=== PATIENT | male | born 1970 | race African-American/Black ===

== ENCOUNTER 2016-09-01 23:39 | Inpatient (IN) | payer OTHER ==
--- NOTE | ~2016-09-01 | HP ---
Unit #: [id number] #: [id number] Patient: REGINO GLOVER [id number] [place] [address] [id number] MR#: [id number] NAME: REGINO GLOVER ROOM: P206 Age: 46 Sex: M Admission Date: 09/01/2016 : 1970 Attending Physician: Win Shrestha M.D. Admitting Physician: Win Shrestha M.D. Primary Care Physician: Primary Care Physician No HISTORY AND PHYSICAL HISTORY OF PRESENT ILLNESS Regino is a 46 year old admitted to [address] [place] [address] because of his illicit drug use which includes IV methamphetamine. PAST MEDICAL HISTORY Long history of illicit substance abuse to include IV meth. PAST SURGICAL HISTORY Nothing reported. ALLERGIES No known drug allergies. SOCIAL HISTORY Smokes greater than one pack per day. Denies alcohol. Admits to a long history of illicit substance abuse to include IV methamphetamine. FAMILY HISTORY Medically noncontributory. REVIEW OF SYSTEMS CONSTITUTIONAL: No fever or chills. HEENT: Denies any sore throat, ear pain or runny nose. CARDIOVASCULAR: Denies chest pain, irregular heart rhythm or palpitations. CHEST: Denies shortness of breath or cough. No hemoptysis. GASTROINTESTINAL: Denies nausea, vomiting, diarrhea or chronic constipation. ENDOCRINE: Denies history of increased thirst or urination. No recent significant weight loss or gain. GENITOURINARY: Denies dysuria, frequency, or hematuria. SKIN: Denies any rashes. HEMATOLOGIC: Denies history of increased bleeding or bruising. MUSCULOSKELETAL: Denies any hot, swollen joints. No generalized muscle pain. NEUROLOGIC: Denies problems with vision or speech. No frequent, severe headaches. No numbness, tingling or weakness in any extremities. Denies loss of bladder or bowel control. CURRENT MEDICATIONS 1. Nicotine patch 14 mg daily 2. Zyprexa 10 mg b.i.d. 3. Trazodone 75 mg q.h.s. p.r.n. Unit #: [id number] #: [id number] Patient: REGINO GLOVER 4. Milk of Magnesia p.r.n. 5. Maalox p.r.n. 6. Tylenol p.r.n. PHYSICAL EXAMINATION GENERAL: Alert, well-nourished, in no apparent distress. VITAL SIGNS: Blood pressure 140/86, heart rate 100, respirations 16, temperature 98.6. WEIGHT: 220 pounds. HEIGHT: 5'7". SKIN: Warm and dry without rash or lesion. HEENT: Normocephalic. TMs not viewed. Oral and nasal passages clear. Conjunctivae clear. Pupils equal, round and reactive to light and accommodation. Extraocular movements intact. NECK: Supple without lymphadenopathy or thyromegaly. HEART: Regular rate and rhythm without murmur. LUNGS: Clear. ABDOMEN: Soft, nontender. : Not done. EXTREMITIES: No evidence of cyanosis, clubbing or edema. Moves all extremities without focal deficit. NEUROLOGICAL: Grossly within normal limits. Cranial Nerves: II: Visual colbert are intact. III, IV AND : Extraocular movements are intact. Pupils are equal, round and reactive to light. V: Facial sensation is grossly normal. VII: Facial movements and expression are normal. VIII: Auditory acuity grossly intact. IX, X: Uvula is midline. Phonation is normal. XI: Patient shrugs shoulders and turns head normally. XII: Tongue protrudes in the midline. Sensory and Motor Function: Sensory and motor sensation is grossly normal. Motor: moves all extremities well. Coordination: Gait is normal. Deep Tendon Reflexes: Intact. IMPRESSION Psychiatric admission RECOMMENDATIONS PSYCHIATRIC: Per psychiatrist. MEDICAL: I see no contraindications to participating in facility's activities. MEDICAL PROGNOSIS Good. MEDICAL CONDITION Stable. Dictated by... Alize VargheseAKendall. for Kian Aguirre/hesham Unit #: [id number] #: [id number] Patient: REGINO GLOVER TD: 09/02/2016 21:45 JOB #: [id number] HISTORY AND PHYSICAL Page 1 of 1 X Anabelle Duarte HISTORY AND PHYSICAL
--- NOTE | ~2016-09-01 | PA ---
Unit #: [id number] #: [id number] Patient: REGINO DOW [id number] [facility] [place] [address] [id number] I MR#: [id number] NAME: REGINO DOW ROOM: P206 Age: 46 Sex: M Admission Date: 09/01/2016 : 1970 Date of Assessment: Attending Physician: Win Shrestha M.D. Admitting Physician: Win Shrestha M.D. Primary Care Physician: Primary Care Physician No PSYCHIATRIC ASSESSMENT INFORMANTS The patient reliability, fair informant and chart reliability, good. CHIEF COMPLAINT Suicidal ideation and substance abuse. HISTORY OF PRESENT ILLNESS Jake Dow is a 46-year-old male, seen on , who presented with the above-mentioned complaint. The patient has a history of previous inpatient treatment at [facility] in the past. The patient presented with the above-mentioned complaint. The patient reported using meth and suicidal. The patient reported having thoughts of shooting himself. The patient reported that he last slept 4 days ago on a binge meth. The patient reported feeling paranoid, delusional, mood lability, and hallucinations. The patient denied any homicidal ideation, but suicidal ideation, reported injecting 20 dollars of meth IV. The patient needing inpatient admission at this time for psychiatric stabilization. PAST PSYCHIATRIC HISTORY Remarkable for history of previous treatment in 2005 and 2008 at [facility] for suicidal ideation and chemical dependency. FAMILY HISTORY AND SOCIAL HISTORY The patient has poor support system. No history of any abuse. MEDICAL HISTORY Unremarkable for any chronic medical illness. Musculoskeletal; muscle strength and tone, no atrophy or abnormal movement. Gait normal. MEDICATION HISTORY None. ALLERGIES No known drug allergies. SUBSTANCE ABUSE HISTORY The patient reported tobacco use, age of onset 24; alcohol, age of onset 16; marijuana, age of onset 17; and crack cocaine, age of onset 25. The patient reported history of blackout and IV drug use. REVIEW OF SYSTEMS HEENT: Eyes, clear. Ears, nose, mouth, and throat; clear. Unit #: [id number] #: [id number] Patient: REGINO DOW CARDIOVASCULAR: Unremarkable. RESPIRATORY: Unremarkable. GI: Unremarkable. : Unremarkable. SKIN: Unremarkable. LYMPH NODE: Unremarkable. NEUROLOGIC: Unremarkable. ENDOCRINE: Unremarkable. HEMATOLOGIC: Unremarkable. ALLERGIC/IMMUNOLOGIC: Unremarkable. MUSCULOSKELETAL: Muscle strength and tone, no atrophy or abnormal movement. Gait normal. MENTAL STATUS EXAMINATION CONSTITUTIONAL: Measurement of vital signs; temperature 97.6, heart rate 100, respiratory rate 17, blood pressure 140/87, height 5 feet 7 inches, and weight 220 pounds. GENERAL APPEARANCE: The patient dressed casually. The patient did not show any facial deformity. MUSCULOSKELETAL: Please see above. PSYCHIATRIC EXAMINATION Description of speech, regular rate. Description of thought process, circumstantial. Description of association; abnormal psychotic thinking, guarded, paranoid, hallucination, depression, suicidal ideation, and substance abuse. Denied any homicidal ideation. Description of the patient's judgment: Concerning everyday activity, poor. Social situation, poor. Concerning psychiatric condition, poor. Complete mental status examination; oriented in time, place, and person. Recent and remote memory, fair. Attention span and concentration, fair. Language, able to name object and repeat phrases. Fund of knowledge, fair. Vocabulary, fair. Mood and affect, sad and dysphoric. Insight and judgment, fair to poor. ASSETS AND LIABILITIES Assets, the patient is articulate and able to take care of his ADL. Liability; history of depression, suicidal ideation, and psychosis. 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 Secondary diagnosis: Deferred. Medical diagnosis: None. Stressors: Psychosocial stressors. PSYCHIATRIC PLAN AND TREATMENT GOAL AND DISCHARGE PLAN 1. Advised to admit the patient on the inpatient unit. Provide safe, supportive, and structured environment. 2. Ordered labs; CBC, CMP, UA, and UDS. 3. Precaution for psychosis, aggression, and self-harm. 4. Detox protocol, detox monitoring, and Zyprexa 10 mg b.i.d. and trazodone 75 mg q.h.s. p.r.n. for sleep. TREATMENT GOAL Unit #: [id number] #: [id number] Patient: REGINO DOW To attain euthymic mood, gain insight into his problem, and learn coping skills. The patient to attend all the programing on the inpatient unit. DISCHARGE PLAN Plan to stabilize the patient and consider followup in outpatient program. ESTIMATED LENGTH OF STAY 5 days. Dictated by... Kian Greene/daren TD: 09/02/2016 17:23 JOB #: [id number] PSYCHIATRIC ASSESSMENT Page 1 of 1 X Win Shrestha MD PSYCHIATRIC ASSESSMENT
--- NOTE | ~2016-09-01 | DS ---
Unit #: [id number] #: [id number] Patient: REGINO GLOVER [id number] [facility] [address] [place] [address] [id number] I MR#: [id number] NAME: REGINO GLOVER ROOM: [facility] Age: 46 Sex: M Admission Date: 09/01/2016 : 1970 Discharge Date: 09/03/2016 Attending Physician: Win Shrestha M.D. Primary Care Physician: Primary Care Physician No DISCHARGE SUMMARY REASON FOR ADMISSION Suicidal ideation and substance abuse. DIAGNOSTIC STUDIES LABORATORY RESULTS: Urine drug screen positive for amphetamine. HOSPITAL COURSE The patient was admitted to inpatient unit on 09/01/2016 and discharged on 09/03/2016. The patient was treated on the inpatient unit with chemical dependency group, expressive therapy, medication management, psychotherapy, and structured milieu. The patient responded well with the above modalities of treatment and medication management. Subsequently, the patient was discharged with a plan to follow up in outpatient program. DISCHARGE MEDICATIONS None. DISCHARGE DIAGNOSES Psychiatric: 1. Mood disorder, not otherwise specified. 2. Amphetamine use disorder with psychosis. Secondary diagnosis: Deferred. Medical diagnosis: None. Stressors: Psychosocial stressors. DISCHARGE INSTRUCTIONS The patient is to follow up in outpatient clinic as per high school social studies tutor. CONDITION ON DISCHARGE The patient was pleasant and cooperative. Denied any psychotic symptom or any suicidal ideation. PROGNOSIS Guarded. DIET AND ACTIVITY As tolerated. Dictated by... Win Shrestha M.D. Unit #: [id number] #: [id number] Patient: REGINO GLOVER SZC/modl TD: 09/03/2016 17:23 JOB #: [id number] DISCHARGE SUMMARY Page 1 of 1 X Win Shrestha MD X DISCHARGE SUMMARY
[2016-09-02 09:30] LABS: BASOPHIL# 0.1 X10e3 (0-0.3); BASOPHIL% 0.8 % (0-2.5); EOSINOPHIL# 0.4 X10e3 (0-0.7); EOSINOPHIL% 6.6 % (0.0-7.0); HEMATOCRIT 49.7 % (38.0-50.0); HEMOGLOBIN 16.2 gm/dL (13.0-16.0); LYMPHOCYTE# 2.2 X10e3 (1.0-3.5); LYMPHOCYTE% 33.5 % (17.0-45.0); MEAN CELL VOLUME 91.3 FL (83-96); MEAN CORPUSCULAR HEMOGLOBIN 29.7 PG (28-34); MEAN CORPUSCULAR HGB CONC 32.5 g/dL (30-36); MEAN PLATELET VOLUME 8.7 FL (6.5-11.5); MONOCYTE# 0.4 X10e3 (0-1.0); MONOCYTE% 6.7 % (3.0-12.0); NEUTROPHIL# 3.4 X10e3 (1.5-7.1); NEUTROPHIL% 52.4 % (40-75); PLATELET COUNT 210 X10e3 (140-420); RED BLOOD COUNT 5.45 X10e (3.90-5.60); RED CELL DISTRIBUTION WIDTH 14.2 % (11.0-15.5); WHITE BLOOD COUNT 6.6 X10e3 (4.0-10.5)
[2016-09-02 09:36] LABS: DIFF IND NO
[2016-09-02 09:59] LABS: ALBUMIN SERUM 3.4 g/dL (3.5-5.0); ALKALINE PHOSPHATASE 76 U/L (32-92); ALT (SGPT) 295 U/L (10-40); AST (SGOT) 132 U/L (10-42); BILIRUBIN,TOTAL 0.8 mg/dL (0.2-2.0); BLOOD UREA NITROGEN 16 mg/dL (9-23); BUN/CREATININE RATIO 11.42; CALCIUM SERUM 8.8 mg/dL (8.4-10.2); CARBON DIOXIDE 25 mmol/L (22-31); CHLORIDE 105 mmol/L (100-111); CREATININE SERUM 1.4 mg/dL (0.6-1.4); GLOM FILT RATE Estimated ABOVE60 mL/min (>60); GLUCOSE FASTING 134 mg/dL (70-110); POTASSIUM 4.2 mmol/L (3.5-5.1); PROTEIN TOTAL SERUM 6.5 g/dL (6.0-8.3); SODIUM 137 mmol/L (135-145)
[2016-09-02 10:03] LABS: FREE THYROXIN (T4) 0.91 ng/dL (0.58-1.64)
[2016-09-03 09:59] LABS: URINE APPEARANCE CLEAR; URINE BILIRUBIN NEG (NEG); URINE BLOOD NEG (NEG); URINE COLOR YELLOW; URINE GLUCOSE NEG (NEG); URINE KETONE NEG (NEG); URINE LEUKOCYTE ESTERASE NEG (NEG); URINE NITRATE NEG (NEG); URINE PROTEIN NEG (NEG); URINE SPECIFIC GRAVITY 1.021 (1.003-1.035); URINE UROBILINOGEN 0.2 MG/DL (NEG)
[2016-09-03 10:14] LABS: AMPHETAMINE POS (NEG); BARBITURATES NEG (NEG); BENZODIAZEPINES NEG (NEG); COCAINE NEG (NEG); MARIJUANA NEG (NEG); OPIATES NEG (NEG); TRICYCLIC ANTIDEPRESSANTS NEG (NEG); U METHADONE NEG (NEG)
== END 2016-09-03 12:30 | disposition home or self-care (01) | DRG 885 ==
LOC: P2S 23:39
PROVIDERS: Psychiatry & Neurology Psychiatry
PROC: HZ2ZZZZ Detoxification Services for Substance Abuse Treatment (ICD-10-PCS; principal; 2016-09-01)
DX: F33.2 Major depressive disorder, recurrent severe without psychotic features (principal); F15.259 Other stimulant dependence with stimulant-induced psychotic disorder, unspecified; R45.851 Suicidal ideations; F17.210 Nicotine dependence, cigarettes, uncomplicated
CPT/HCPCS: 80053; 80307; 81003; 84439; 84443; 85025; 86592